=== PATIENT | female | born 1990 | race Caucasian/White ===

== ENCOUNTER 2019-04-10 16:08 | Observation (INO) | payer BC ==
[2019-04-10] MEDS ORDERED: ACETAMINOPHEN 325 MG TAB PO ONE (16:51)
[2019-04-10] MEDS ORDERED: 0.9 % SODIUM CHLORIDE 1,000 ML BAG IV ONE ×2 (16:52→18:17)
--- NOTE | 2019-04-10 16:55 | Emergency Department Record ---
History of Present Illness - General Chief Complaint: Fever Stated Complaint: FEVER,COUGH,SORE THROAT Time Seen by Provider: 04/10/19 16:45 Source: Patient Mode of Arrival: Ambulatory Limitations: No limitations - History of Present Illness Initial Comments: The patient is here due to a 3 day hx of cough, congestion, fever, and FUENTES. One of her children recently has had pneumonia. She denies any CP, SOB, neck pain or vomiting. MD Complaint: Fever, Malaise Onset/Timin -: Days(s) Maximum Temperature: 103.6 F Temperature Source: Oral Context: Sick contacts Associated Symptoms: Cough, Headache, Sore throat, Other Treatments Prior to Arrival: None - Related Data Home Medications Medication Instructions Recorded Confirmed Last Taken No Home Med [NO HOME MEDS] 04/10/19 04/10/19 Unknown Allergies Allergy/AdvReac Type Severity Reaction Status Date / Time morphine Allergy Mild HIVES Verified 04/10/19 16:20 Travel Screening - Travel/Exposure Within Last 30 Days Have you traveled within the last 30 days?: No Review of Systems Constitutional: Reports: Chills, Fever, Malaise Eyes: Denies: Eye discharge ENT: Denies: Congestion Respiratory: Reports: Cough. Denies: Dyspnea Cardiovascular: Denies: Arrhythmia Endocrine: Reports: Fatigue Past Medical History - SOCIAL HISTORY Smoking Status: Current every day smoker - RESPIRATORY Hx Respiratory Disorders: No - CARDIOVASCULAR Hx Cardio Disorders: No - NEURO Hx Neuro Disorders: Yes - GI Hx GI Disorders: No - Hx Genitourinary Disorders: No - ENDOCRINE Hx Endocrine Disorders: No - MUSCULOSKELETAL Hx Musculoskeletal Disorders: No Comment:: right knee pain for several weeks - PSYCH Hx Psych Problems: No - HEMATOLOGY/ONCOLOGY Hx Hematology/Oncology Disorders: No Family Medical History Any Significant Family History?: Yes Hx Alcohol Use: Father Hx Dementia: Grandparents Hx Resp Disorders: Brother/Sister Physical Exam - General General Appearance: Alert, Oriented x3, Cooperative, No acute distress - Head Head exam: Atraumatic, Normocephalic - Eye Eye exam: Normal appearance, PERRL, EOMI - ENT Throat exam: Tonsillar erythema. negative: Normal inspection, Tonsillomegaly - Neck Neck exam: Normal inspection, Full ROM. negative: Meningismus (the neck is very supple.), Tenderness - Respiratory Respiratory exam: Normal lung sounds bilaterally. negative: Chest wall tenderness, Rales, Respiratory distress - Cardiovascular Cardiovascular Exam: Regular rate, Normal rhythm, Normal heart sounds. negative: Diastolic murmur - GI/Abdominal GI/Abdominal exam: Soft, Normal bowel sounds. negative: Tenderness - Extremities Extremities exam: Normal inspection, Full ROM, Normal capillary refill. negative: Tenderness - Neurological Neurological exam: Alert. negative: Motor sensory deficit Course Vital Signs 04/10/19 16:16 Temperature 103.1 F H Pulse Rate 132 H Respiratory 22 Rate Blood Pressure 131/79 Pulse Ox 97 - Reevaluation(s) Reevaluation #1: The patient is doing better at this time. Her HR is improving and her temp is down to 102.0. I did discuss the xray that did demonstrate bilateral pneumonia and recommended a short stay hospital admission and the patient agreed with the plan. I then did discuss the case with Deya Lazo ([employer]GR[employer]) and she does accept the patient for admission. 04/10/19 18:15 Medical Decision Making - Data Complexity MDM Data: Labs Ordered and/or Reviewed, X-Ray Ordered and/or Reviewed - Lab Data Result diagrams: 04/10/19 17:10 04/10/19 17:10 - Radiology Data Radiology results: Report reviewed (CXR: R middle lobe infiltrate and possible L lingula infiltrate.) Disposition Disposition: Admit Clinical Impression: Pneumonia Qualifiers: Pneumonia type: due to unspecified organism Laterality: bilateral Lung location: unspecified part of lung Qualified Code(s): J18.9 - Pneumonia, unspecified organism Disposition: Still a Patient at [facility] Decision to Admit: Admit from ER Decision to Admit Date: 04/10/19 Decision to Admit Time: 18:18 Accepting Physician: Carmen Time Discussed w/Accepting Physician: 18:18 Condition: (2) Stable Instructions: Pneumonitis (ED) Forms: Patient Portal Access Time of Disposition: 18:18 Quality - Quality Measures Quality Measures: N/A - Blood Pressure Screening View Details: Yes Does Patient Have Any of the Following: No Blood Pressure Classification: Pre-Hypertensive BP Reading Systolic Measurement: 131 Diastolic Measurement: 79 Screening for High Blood Pressure: < Pre-Hypertensive BP, F/U Documented > [G8950] Pre-Hypertensive Follow-up Interventions: Referral to alternative/primary care provider.
[2019-04-10] MEDS ORDERED: IBUPROFEN 600 MG TABLET PO ONE (17:14)
[2019-04-10 17:28] LABS: HEMATOCRIT 44.6 % (35.0-47.0); HEMOGLOBIN 15.1 gm/dl (11.6-16.0); MEAN CELL VOLUME 88.3 fl (81-97); MEAN CORPUSCULAR HEMOGLOBIN 29.9 pg (27-33); MEAN CORPUSCULAR HGB CONC 33.9 g/dl (32-36); MEAN PLATELET VOLUME 10.2 fl (7.4-10.4); PLATELET COUNT 172 K/uL (130-400); RED BLOOD COUNT 5.05 M/uL (3.80-5.40); RED CELL DISTRIBUTION WIDTH 12.2 % (11.5-14.5); WHITE BLOOD COUNT W/O DIFF 9.8 K/uL (4.2-12.2)
[2019-04-10] MEDS ORDERED: CEFTRIAXONE 1GM/50ML BAG 1 GM/50 ML BAG IVPB ONE (17:35)
[2019-04-10] MEDS ORDERED: AZITHROMYCIN 500 MG in 0.9 % SODIUM CHLORIDE 250ML 250 ML IVPB ONE (17:36)
[2019-04-10 17:40] LABS: BLOOD UREA NITROGEN 9 mg/dL (6-20); EST GLOMERULAR FILTRATION RATE > 60 mL/min
[2019-04-10 17:41] LABS: TOTAL PROTEIN 7.5 g/dL (6.6-8.7)
[2019-04-10 17:43] LABS: GLUCOSE,RANDOM 105 mg/dL (74-109)
[2019-04-10 17:45] LABS: ALB/GLOB RATIO 1.5 (1.1-1.8); ALBUMIN 4.5 g/dL (4.0-5.0); ALKALINE PHOSPHATASE 74 U/L (35-104); ALT/SGPT 18 U/L (<33); AST/SGOT 19 U/L (10.0-35.0)
[2019-04-10 17:46] LABS: C-REACTIVE PROTEIN 16.21 mg/dL (<0.5)
[2019-04-10 18:02] LABS: ABSOLUTE NEUTROPHIL COUNT 8.56
[2019-04-10] MEDS: CEFTRIAXONE SODIUM 1 GM in 0.9 % SODIUM CHLORIDE 100ML 100 ML IVPB SCH (19:39)
[2019-04-10] MEDS: IPRATROPIUM/ALBUTEROL (0.5MG/3MG) NEB INH SCH (21:12)
[2019-04-11] MEDS: ACETAMINOPHEN 325 MG TAB PO PRN ×2 (04:12→20:01)
[2019-04-11] MEDS: IPRATROPIUM/ALBUTEROL (0.5MG/3MG) NEB INH SCH ×5 (06:01→22:01)
[2019-04-11 06:38] LABS: ABSOLUTE NEUTROPHIL COUNT 6.84; BASO % 0.1 % (0-6); EOS % 0.2 % (0-6); HEMATOCRIT 38.7 % (35.0-47.0); HEMOGLOBIN 12.8 gm/dl (11.6-16.0); LYMPH % 7.3 % (16-45); MEAN CELL VOLUME 89.2 fl (81-97); MEAN CORPUSCULAR HEMOGLOBIN 29.5 pg (27-33); MEAN CORPUSCULAR HGB CONC 33.1 g/dl (32-36); MEAN PLATELET VOLUME 10.1 fl (7.4-10.4); MONO % 7.1 % (0-9); PLATELET COUNT 136 K/uL (130-400); RED BLOOD COUNT 4.34 M/uL (3.80-5.40); RED CELL DISTRIBUTION WIDTH 12.2 % (11.5-14.5)
[2019-04-11] MEDS: CEFTRIAXONE SODIUM 1 GM in 0.9 % SODIUM CHLORIDE 100ML 100 ML IVPB SCH (06:38)
[2019-04-11 06:51] LABS: ALBUMIN 3.5 g/dL (4.0-5.0); BLOOD UREA NITROGEN 7 mg/dL (6-20); CREATININE 0.7 mg/dL (0.5-0.9); EST GLOMERULAR FILTRATION RATE > 60 mL/min; GLUCOSE,RANDOM 115 mg/dL (74-109); TOTAL PROTEIN 5.9 g/dL (6.6-8.7)
[2019-04-11 06:52] LABS: ALB/GLOB RATIO 1.5 (1.1-1.8); ALKALINE PHOSPHATASE 59 U/L (35-104); ALT/SGPT 17 U/L (<33); AST/SGOT 18 U/L (10.0-35.0)
--- NOTE | 2019-04-11 07:14 | RADIOLOGY REPORT ---
EXAM: CHEST, TWO VIEWS HISTORY: COUGH, DIFFICULTY IN BREATHING, FEVER. TECHNIQUE: PA and lateral views of the chest were obtained. Comparison: Two view chest 08/07/15. FINDINGS: The heart size is normal, however, there is considerable new infiltrate in the right middle lobe compared to the prior study, presumably representing pneumonitis. There is probably a small patch in the left base medially as well, likely within the lingula. Follow-up films are suggested to demonstrate clearing. No definite pleural effusion or pneumothorax evident. IMPRESSION: 1. NEW INFILTRATE IN THE RIGHT MIDDLE LOBE AND PROBABLY A SMALL AMOUNT IN THE LINGULA WELL COMPARED WITH 08/07/15 PRESUMABLY REPRESENTING ACUTE PNEUMONITIS CURRENTLY. 2. FOLLOW-UP FILMS SUGGESTED TO DEMONSTRATE CLEARING. JOB NUMBER: [id number] MTDD
[2019-04-11] MEDS: 0.9 % SODIUM CHLORIDE 1000ML 1,000 ML IV PRN (08:14)
[2019-04-11] MEDS: ALBUTEROL SULFATE (0.083%) 2.5 MG/3 ML NEB INH PRN ×2 (09:34→18:13)
[2019-04-11] MEDS: IBUPROFEN 600 MG TABLET PO PRN ×2 (09:43→17:43)
--- NOTE | 2019-04-11 15:32 | History & Physical ---
History of Present Illness - Date of Service Date of Service for History & Physical: 04/12/19 - History of Present Illness Admitting Diagnosis: 1. Acute Bilateral Pneumonia History of Present Illness: 28 yo female c/o cough, congestion, fever, and FUENTES for 3 days. Pt son had URI that turned into PNA and he was treated with quick recovery. 04/11/19 Temp 103.1, HR 132, BP 131/79, RR 22, 97% RA CBC 9.8, Hgb 15.1, Hct 44.6, Plt 172 Na 130, K 4.0, Anion gap 16, BUN 9, Cr 1.0, Glucose 105, LFTs unremarkable, CRP 16.21 CXR RLL PNA Pt given 1 L NS, Zithromax 500IVPB, Rocephin 1gm, Motrin 600mg, Tylenol 650mg Admission for PNA 04/11/19 Pt resting in bed, mild resp distress. Lungs are dim but no rhonchi noted, no accessory muscle use. Moving all extremities, skin is pale warm and dry. POC continue antibiotics, breathing treatments and repeat labs and CXR in the am. Monitor temp and treat as needed PCP none Travel Screening - Travel/Exposure Within Last 30 Days Have you traveled within the last 30 days?: Yes Location Detail:: [place] - Travel/Exposure Within Last Year Have you traveled outside the [place] in the last year?: No - Additonal Travel Details Have you been exposed to anyone with a communicable illness?: No - Travel Symptoms Symptom Screening: Fever (GT 100.4), Weakness, Fatigue Review of Systems Constitutional: Reports: Chills, Fever, Malaise Eyes: Denies: Eye discharge ENT: Denies: Congestion Respiratory: Reports: Cough. Denies: Dyspnea Cardiovascular: Denies: Arrhythmia Endocrine: Reports: Fatigue Past Medical History - SOCIAL HISTORY Smoking Status: Current every day smoker - RESPIRATORY Hx Respiratory Disorders: No - CARDIOVASCULAR Hx Cardio Disorders: No - NEURO Hx Neuro Disorders: Yes - GI Hx GI Disorders: No - Hx Genitourinary Disorders: No - ENDOCRINE Hx Endocrine Disorders: No - MUSCULOSKELETAL Hx Musculoskeletal Disorders: No Comment:: right knee pain for several weeks - PSYCH Hx Psych Problems: No - HEMATOLOGY/ONCOLOGY Hx Hematology/Oncology Disorders: No Family Medical History Any Significant Family History?: Yes Hx Alcohol Use: Father Hx Dementia: Grandparents Hx Resp Disorders: Brother/Sister H&P Meds/Allergies - Allergies Allergies: Allergies Allergy/AdvReac Type Severity Reaction Status Date / Time morphine Allergy Mild HIVES Verified 04/10/19 16:20 - Home Medications Home Medications Medication Instructions Recorded Confirmed Last Taken No Home Med [NO HOME MEDS] 04/10/19 04/10/19 Unknown - Active Medications Active Medications: Current Medications Acetaminophen (Tylenol 325mg) 650 mg PO Q4H PRN PRN Reason: PAIN - MILD(1-4)/FEVER Last Admin: 04/11/19 04:12 Dose: 650 mg Documented by: Albuterol Sulfate (Albuterol Sulfate) 2.5 mg INH Q2H PRN PRN Reason: SHORTNESS OF BREATH Last Admin: 04/11/19 09:34 Dose: 2.5 mg Documented by: Albuterol/Ipratropium (Duoneb) 3 ml INH RESP.Q4H.WA [facility] Last Admin: 04/11/19 13:09 Dose: 3 ml Documented by: Azithromycin (Zithromax) 500 mg PO Q24H [facility] Sodium Chloride () 1,000 mls @ 100 mls/hr IV .Q10H PRN PRN Reason: LARGE VOLUME IV Last Admin: 04/11/19 08:14 Dose: 100 mls/hr Documented by: CEFTRIAXONE 1GM/50ML BAG (Ceftriaxone 1 Gm-D5w Bag) 1 gm in 50 mls @ 100 mls/hr IVPB Q12H [facility] Ibuprofen (Motrin 600mg) 600 mg PO Q8H PRN PRN Reason: FEVER Last Admin: 04/11/19 09:43 Dose: 600 mg Documented by: Physical Exam - Vital Signs Vital Signs: Vital Signs - Last 24 Hrs Temp Pulse Pulse Pulse Resp BP BP 04/11/19 14:40 99.1 F 04/11/19 13:10 97 H 18 04/11/19 12:00 99.7 F H 114 H 18 92/59 04/11/19 09:41 16 04/11/19 09:36 99 H 18 04/11/19 08:52 98.9 F 04/11/19 07:31 99.1 F 106 H 19 107/56 04/11/19 06:02 78 16 04/11/19 05:15 101 F H 07/18/19 04:00 102.8 F H 121 H 18 105/62 04/11/19 00:00 103 H 18 96/63 04/10/19 21:27 86 16 04/10/19 21:00 18 04/10/19 20:00 98.5 F 96 H 18 98/62 04/10/19 19:05 22 04/10/19 18:40 97.9 F 94 H 20 94/60 04/10/19 18:39 100.9 F H 04/10/19 17:16 103.0 F H 04/10/19 17:15 118 H 21 111/73 04/10/19 16:16 103.1 F H 132 H 22 131/79 Pulse Ox 04/11/19 14:40 04/11/19 13:10 96 04/11/19 12:00 96 04/11/19 09:41 04/11/19 09:36 99 04/11/19 08:52 04/11/19 07:31 98 04/11/19 06:02 04/11/19 05:15 04/11/19 04:00 97 04/11/19 00:00 96 04/10/19 21:27 04/10/19 21:00 04/10/19 20:00 96 04/10/19 19:05 04/10/19 18:40 95 04/10/19 18:39 04/10/19 17:16 04/10/19 17:15 98 04/10/19 16:16 97 - General General Appearance: Alert, Oriented x3, Cooperative, No acute distress Limitations: No limitations - Head Head exam: Atraumatic, Normocephalic - Eye Eye exam: Normal appearance, PERRL, EOMI - ENT Throat exam: Tonsillar erythema. negative: Normal inspection, Tonsillomegaly - Neck Neck exam: Normal inspection, Full ROM. negative: Meningismus (the neck is very supple.), Tenderness - Respiratory Respiratory exam: Normal lung sounds bilaterally. negative: Chest wall tenderness, Rales, Respiratory distress - Cardiovascular Cardiovascular Exam: Regular rate, Normal rhythm, Normal heart sounds. negative: Diastolic murmur - GI/Abdominal GI/Abdominal exam: Soft, Normal bowel sounds. negative: Tenderness - Extremities Extremities exam: Normal inspection, Full ROM, Normal capillary refill. negative: Tenderness - Neurological Neurological exam: Alert. negative: Motor sensory deficit Results - Labs Result Diagrams: 04/12/19 09:45 04/12/19 09:45 Labs Last 24 Hours: Laboratory Results - last 24 hr 04/10/19 04/10/19 04/10/19 17:10 17:10 17:10 WBC 9.8 RBC 5.05 Hgb 15.1 Hct 44.6 MCV 88.3 MCH 29.9 MCHC 33.9 RDW 12.2 Plt Count 172 MPV 10.2 Neutrophils % 87.0 H Band Neutrophils % Lymphocytes % Monocytes % Eosinophils % Not Reportable Basophils % Not Reportable Absolute Neutrophils 8.56 Lymphocytes 6.0 L Monocytes 7.0 Basophils Eosinophil Count Sodium 130 L Potassium 4.0 Chloride 93 L Carbon Dioxide 21.0 L Anion Gap 16.0 BUN 9 Creatinine 1.0 H Estimated GFR > 60 Random Glucose 105 Calcium 9.1 Total Bilirubin 0.90 AST 19 ALT 18 Alkaline Phosphatase 74 C-Reactive Protein 16.21 H Total Protein 7.5 Albumin 4.5 Globulin 3.0 Albumin/Globulin Ratio 1.5 Serum HCG, Qual Negative 04/11/19 04/11/19 06:29 06:29 WBC 8.0 RBC 4.34 Hgb 12.8 Hct 38.7 MCV 89.2 MCH 29.5 MCHC 33.1 RDW 12.2 Plt Count 136 MPV 10.1 Neutrophils % 86.0 H Band Neutrophils % 0.0 Lymphocytes % 7.3 L Monocytes % 7.1 Eosinophils % 0.2 Basophils % 0.1 Absolute Neutrophils 6.84 Lymphocytes 8.0 L Monocytes 6.0 Basophils 0.0 Eosinophil Count 0.0 Sodium 134 L Potassium 3.7 Chloride 103 Carbon Dioxide 19.0 L Anion Gap 12.0 BUN 7 Creatinine 0.7 Estimated GFR > 60 Random Glucose 115 H Calcium 7.7 L Total Bilirubin 0.60 AST 18 ALT 17 Alkaline Phosphatase 59 C-Reactive Protein Total Protein 5.9 L Albumin 3.5 L Globulin 2.4 Albumin/Globulin Ratio 1.5 Serum HCG, Qual VTE H&P Assessment - Risk for VTE Risk for VTE: Yes Risk Level: Moderate Risk Assessment Date: 04/11/19 Risk Assessment Time: 15:32 VTE Orders Placed or Will Be Placed: Yes
[2019-04-11] MEDS: CEFTRIAXONE 1GM/50ML BAG 1 GM/50 ML BAG IVPB SCH (17:42)
[2019-04-11] MEDS: AZITHROMYCIN 500 MG TABLET PO SCH (17:43)
[2019-04-11] MEDS ORDERED: AZITHROMYCIN 500 MG in 0.9 % SODIUM CHLORIDE 250ML 250 ML IVPB SCH (18:30)
[2019-04-12] MEDS: IBUPROFEN 600 MG TABLET PO PRN ×2 (02:17→17:58)
[2019-04-12] MEDS: IPRATROPIUM/ALBUTEROL (0.5MG/3MG) NEB INH SCH ×5 (05:14→22:04)
[2019-04-12] MEDS: CEFTRIAXONE 1GM/50ML BAG 1 GM/50 ML BAG IVPB SCH (05:30)
[2019-04-12] MEDS: ACETAMINOPHEN 325 MG TAB PO PRN (05:30)
[2019-04-12] MEDS: 0.9 % SODIUM CHLORIDE 1000ML 1,000 ML IV PRN (05:38)
[2019-04-12 09:52] LABS: ABSOLUTE NEUTROPHIL COUNT 3.83; BASO % 0.2 % (0-6); EOS % 1.6 % (0-6); HEMATOCRIT 37.5 % (35.0-47.0); HEMOGLOBIN 12.4 gm/dl (11.6-16.0); LYMPH % 13.4 % (16-45); MEAN CELL VOLUME 89.7 fl (81-97); MEAN CORPUSCULAR HEMOGLOBIN 29.7 pg (27-33); MEAN CORPUSCULAR HGB CONC 33.1 g/dl (32-36); MONO % 5.8 % (0-9); PLATELET COUNT 135 K/uL (130-400); RED BLOOD COUNT 4.18 M/uL (3.80-5.40); RED CELL DISTRIBUTION WIDTH 12.5 % (11.5-14.5); WHITE BLOOD COUNT W/O DIFF 4.9 K/uL (4.2-12.2)
[2019-04-12 10:04] LABS: BLOOD UREA NITROGEN 5 mg/dL (6-20); CREATININE 0.6 mg/dL (0.5-0.9); EST GLOMERULAR FILTRATION RATE > 60 mL/min; GLUCOSE,RANDOM 139 mg/dL (74-109)
[2019-04-12] MEDS: ENOXAPARIN 40 MG/0.4 ML SYR SQ SCH (10:24)
[2019-04-12] MEDS: METRONIDAZOLE 250 MG TABLET PO SCH ×2 (10:25→18:00)
[2019-04-12 11:04] LABS: URINE APPEARANCE CLEAR; URINE BILIRUBIN NEGATIVE (NEGATIVE); URINE BLOOD SMALL (NEGATIVE); URINE COLOR YELLOW; URINE GLUCOSE (UA) NEGATIVE (NEGATIVE); URINE KETONE NEGATIVE (NEGATIVE); URINE LEUKOCYTE ESTERASE NEGATIVE (NEGATIVE); URINE NITRITE NEGATIVE (NEGATIVE); URINE PROTEIN NEGATIVE (NEGATIVE); URINE UROBILINOGEN 0.2 E.U./dL (0.20 - 1.00)
[2019-04-12 11:12] LABS: URINE EPITHELIAL CELLS 0 - 2 (FEW); URINE RBC 0 - 2 (NONE SEEN); URINE WBC NONE SEEN (0-2/hpf)
--- NOTE | 2019-04-12 11:53 | Physician Progress Note ---
Subjective - Date Date of Physician Progress Note: 04/13/19 - Subjective Subjective Comment: pt reports feeling better but through the night, appears to have broken a fever as she sweat through her bed linens. Additionally still has activity intolerance. Objective - Vital Signs Vital Signs: Vital Signs - Last 24 Hrs Temp Pulse Pulse Resp BP Pulse Ox 04/12/19 11:36 97.6 F 109 H 20 105/60 97 04/12/19 09:37 116 H 24 95 04/12/19 07:38 98.5 F 97 H 16 95/51 96 04/12/19 05:16 108 H 12 97 04/12/19 04:00 99.4 F 121 H 16 103/58 95 04/12/19 00:00 98.7 F 98 H 18 90/54 97 04/11/19 22:03 105 H 20 97 04/11/19 21:00 100.3 F H 122 H 20 108/53 96 04/11/19 18:09 123 H 28 H 99 04/11/19 18:00 101.3 F H 63 30 H 100/63 98 04/11/19 14:40 99.1 F 04/11/19 13:10 97 H 18 96 04/11/19 12:00 99.7 F H 114 H 18 92/59 96 - General General Appearance: Alert, Oriented x3, Cooperative, Mild distress Limitations: No limitations - Head Head exam: Atraumatic, Normocephalic - Eye Eye exam: Normal appearance, PERRL, EOMI - ENT ENT exam: Normal exam, Mucous membranes moist Ear exam: Normal external inspection Throat exam: Tonsillar erythema. negative: Normal inspection, Tonsillomegaly - Neck Neck exam: Normal inspection, Full ROM. negative: Meningismus (the neck is very supple.), Tenderness - Respiratory Respiratory exam: Decreased breath sounds, Wheezes. negative: Accessory muscle use, Chest wall tenderness, Rales, Respiratory distress - Cardiovascular Cardiovascular Exam: Regular rate, Normal rhythm, Normal heart sounds. ne gative: Diastolic murmur Peripheral Pulses: 3+: Radial (R), Radial (L), Dorsalis Pedis (R), Dorsalis Pedis (L) - GI/Abdominal GI/Abdominal exam: Soft, Normal bowel sounds. negative: Tenderness - Rectal Rectal exam: Deferred - exam: Deferred - Extremities Extremities exam: Normal inspection, Full ROM, Normal capillary refill. negative: Tenderness - Neurological Neurological exam: Alert. negative: Motor sensory deficit Assessment and Plan - Assessment and Plan (1) Pneumonia Current Visit: Yes Status: Acute Qualifiers: Pneumonia type: due to unspecified organism Laterality: bilateral Lung location: unspecified part of lung Qualified Code(s): J18.9 - Pneumonia, unspecified organism Base Code: J18.9 - PNEUMONIA, UNSPECIFIED ORGANISM Comment: 04/13/19 -added Zosyn and pt improved symptoms -labs improved and were WNL last 2 draws -d/c on Levaquin, Flaygl and Ventolin with tessalon perles for cough (Consulted pharmacy for abx PO changes) -return for worsening symptoms -f/u with new PCP 04/12/19 -CXR shows worsening PNA -adding flaygl for increased anaerobic coverage -re-eval in the AM -continue alb nebs (2) DVT prophylaxis Current Visit: Yes Status: Acute Base Code: Z29.9 - ENCOUNTER FOR TX OPHYLACTIC MEASURES, UNSPECIFIED Comment: 04/12/19 -Lovenox 40mgSQ daily (3) Full code status Current Visit: Yes Status: Acute Base Code: Z78.9 - OTHER SPECIFIED HEALTH STATUS Comment: 04/12/19 full code Results - Labs Result Diagrams: 04/12/19 09:45 04/12/19 09:45 Labs Last 24 Hours: Laboratory Results - last 24 hr 04/12/19 04/12/19 04/12/19 09:45 09:45 11:02 WBC 4.9 RBC 4.18 Hgb 12.4 Hct 37.5 MCV 89.7 MCH 29.7 MCHC 33.1 RDW 12.5 Plt Count 135 MPV 10.0 Gran % 79.0 Lymphocytes % 13.4 L Monocytes % 5.8 Eosinophils % 1.6 Basophils % 0.2 Absolute Neutrophils 3.83 Sodium 139 Potassium 3.8 Chloride 106 Carbon Dioxide 21.0 L Anion Gap 12.0 BUN 5 L Creatinine 0.6 Estimated GFR > 60 Random Glucose 139 H Calcium 8.0 L Urine Color Yellow Urine Appearance Clear Urine pH 6.0 Ur Specific [place] <= 1.005 Urine Protein Negative Urine Glucose (UA) Negative Urine Ketones Negative Urine Blood Small H Urine Nitrite Negative Urine Bilirubin Negative Urine Urobilinogen 0.2 Ur Leukocyte Esterase Negative Urine RBC 0 - 2 Urine WBC None seen Ur Epithelial Cells 0 - 2 DVT/PE Assessment - Risk for VTE Risk for VTE: No Risk Level: Moderate Risk Assessment Date: 04/11/19 Risk Assessment Time: 15:32 VTE Orders Placed or Will Be Placed: Yes - Active Medicaitons Current Medications: Current Medications Acetaminophen (Tylenol 325mg) 650 mg PO Q4H PRN PRN Reason: PAIN - MILD(1-4)/FEVER Last Admin: 04/12/19 05:30 Dose: 650 mg Documented by: Albuterol Sulfate (Albuterol Sulfate) 2.5 mg INH Q2H PRN PRN Reason: SHORTNESS OF BREATH Last Admin: 04/11/19 18:13 Dose: 2.5 mg Documented by: Albuterol/Ipratropium (Duoneb) 3 ml INH RESP.Q4H.WA [facility] Last Admin: 04/12/19 09:26 Dose: 3 ml Documented by: Azithromycin (Zithromax) 500 mg PO Q24H [facility] Last Admin: 04/11/19 17:43 Dose: 500 mg Documented by: Enoxaparin Sodium (Lovenox) 40 mg SQ DAILY [facility] Last Admin: 04/12/19 10:24 Dose: 40 mg Documented by: Sodium Chloride () 1,000 mls @ 100 mls/hr IV .Q10H PRN PRN Reason: LARGE VOLUME IV Last Admin: 04/12/19 05:38 Dose: 100 mls/hr Documented by: CEFTRIAXONE 1GM/50ML BAG (Ceftriaxone 1 Gm-D5w Bag) 1 gm in 50 mls @ 100 mls/hr IVPB Q12H [facility] Last Infusion: 04/12/19 06:38 Dose: Infused Documented by: Ibuprofen (Motrin 600mg) 600 mg PO Q8H PRN PRN Reason: FEVER Last Admin: 04/12/19 02:17 Dose: 600 mg Documented by: Metronidazole (Flagyl) 500 mg PO Q8H [facility] Last Admin: 04/12/19 10:25 Dose: 500 mg Documented by: AMI Plan - Labs Result Diagrams: 04/12/19 09:45 04/12/19 09:45
--- NOTE | 2019-04-12 12:12 | History & Physical ---
History of Present Illness - Date of Service Date of Service for History & Physical: 04/13/19 - History of Present Illness Admitting Diagnosis: 1. Acute Bilateral Pneumonia History of Present Illness: 28 yo female c/o cough, congestion, fever, and FUENTES for 3 days. Pt son had URI that turned into PNA and he was treated with quick recovery. 04/11/19 Temp 103.1, HR 132, BP 131/79, RR 22, 97% RA CBC 9.8, Hgb 15.1, Hct 44.6, Plt 172 Na 130, K 4.0, Anion gap 16, BUN 9, Cr 1.0, Glucose 105, LFTs unremarkable, CRP 16.21 CXR RLL PNA Pt given 1 L NS, Zithromax 500IVPB, Rocephin 1gm, Motrin 600mg, Tylenol 650mg Admission for PNA 04/11/19 Pt resting in bed, mild resp distress. Lungs are dim but no rhonchi noted, no accessory muscle use. Moving all extremities, skin is pale warm and dry. POC continue antibiotics, breathing treatments and repeat labs and CXR in the am. Monitor temp and treat as needed PCP none Travel Screening - Travel/Exposure Within Last 30 Days Have you traveled within the last 30 days?: Yes Location Detail:: [place] - Travel/Exposure Within Last Year Have you traveled outside the [place] in the last year?: No - Additonal Travel Details Have you been exposed to anyone with a communicable illness?: No - Travel Symptoms Symptom Screening: Fever (GT 100.4), Weakness, Fatigue Review of Systems Constitutional: Reports: Chills, Fever, Malaise Eyes: Denies: Eye discharge ENT: Denies: Congestion Respiratory: Reports: Cough. Denies: Dyspnea Cardiovascular: Denies: Arrhythmia Endocrine: Reports: Fatigue Past Medical History - SOCIAL HISTORY Smoking Status: Former smoker - RESPIRATORY Hx Respiratory Disorders: No - CARDIOVASCULAR Hx Cardio Disorders: No - NEURO Hx Neuro Disorders: Yes - GI Hx GI Disorders: No - Hx Genitourinary Disorders: No - ENDOCRINE Hx Endocrine Disorders: No - MUSCULOSKELETAL Hx Musculoskeletal Disorders: No Comment:: right knee pain for several weeks - PSYCH Hx Psych Problems: No - HEMATOLOGY/ONCOLOGY Hx Hematology/Oncology Disorders: No Family Medical History Any Significant Family History?: Yes Hx Alcohol Use: Father Hx Dementia: Grandparents Hx Resp Disorders: Brother/Sister H&P Meds/Allergies - Allergies Allergies: Allergies Allergy/AdvReac Type Severity Reaction Status Date / Time morphine Allergy Mild HIVES Verified 04/10/19 16:20 - Home Medications Previous Rx's Medication Instructions Recorded Acetaminophen [Tylenol 325Mg] 650 mg PO Q4H PRN tablet 04/13/19 Albuterol Sulfate [Ventolin Hfa] 1 - 2 puff IH .EVERY 4-6 HOURS PRN 04/13/19 #1 inhaler Ibuprofen [Motrin 600Mg] 600 mg PO Q8H PRN tablet 04/13/19 Levofloxacin [Levaquin Tab] 500 mg PO DAILY 10 Days #10 tab 04/13/19 Metronidazole [Flagyl] 500 mg PO Q8HR 10 Days #30 tablet 04/13/19 - Active Medications Active Medications: Current Medications Acetaminophen (Tylenol 325mg) 650 mg PO Q4H PRN PRN Reason: PAIN - MILD(1-4)/FEVER Last Admin: 04/12/19 05:30 Dose: 650 mg Documented by: Albuterol Sulfate (Albuterol Sulfate) 2.5 mg INH Q2H PRN PRN Reason: SHORTNESS OF BREATH Last Admin: 04/11/19 18:13 Dose: 2.5 mg Documented by: Albuterol/Ipratropium (Duoneb) 3 ml INH RESP.Q4H.[facility] Last Admin: 04/12/19 09:26 Dose: 3 ml Documented by: Azithromycin (Zithromax) 500 mg PO Q24H [facility] Last Admin: 04/11/19 17:43 Dose: 500 mg Documented by: Enoxaparin Sodium (Lovenox) 40 mg SQ DAILY [facility] Last Admin: 04/12/19 10:24 Dose: 40 mg Documented by: Sodium Chloride () 1,000 mls @ 100 mls/hr IV .Q10H PRN PRN Reason: LARGE VOLUME IV Last Admin: 04/12/19 05:38 Dose: 100 mls/hr Documented by: CEFTRIAXONE 1GM/50ML BAG (Ceftriaxone 1 Gm-D5w Bag) 1 gm in 50 mls @ 100 mls/hr IVPB Q12H [facility] Last Infusion: 04/12/19 06:38 Dose: Infused Documented by: Ibuprofen (Motrin 600mg) 600 mg PO Q8H PRN PRN Reason: FEVER Last Admin: 04/12/19 02:17 Dose: 600 mg Documented by: Metronidazole (Flagyl) 500 mg PO Q8H [facility] Last Admin: 04/12/19 10:25 Dose: 500 mg Documented by: Physical Exam - Vital Signs Vital Signs: Vital Signs - Last 24 Hrs Temp Pulse Pulse Resp BP Pulse Ox 04/12/19 11:36 97.6 F 109 H 20 105/60 97 04/12/19 09:37 116 H 24 95 04/12/19 07:38 98.5 F 97 H 16 95/51 96 04/12/19 05:16 108 H 12 97 04/12/19 04:00 99.4 F 121 H 16 103/58 95 04/12/19 00:00 98.7 F 98 H 18 90/54 97 04/11/19 22:03 105 H 20 97 04/11/19 21:00 100.3 F H 122 H 20 108/53 96 04/11/19 18:09 123 H 28 H 99 04/11/19 18:00 101.3 F H 63 30 H 100/63 98 04/11/19 14:40 99.1 F 04/11/19 13:10 97 H 18 96 - General General Appearance: Alert, Oriented x3, Cooperative, Mild distress Limitations: No limitations - Head Head exam: Atraumatic, Normocephalic - Eye Eye exam: Normal appearance, PERRL, EOMI - ENT ENT exam: Normal exam, Mucous membranes moist Ear exam: Normal external inspection Throat exam: Tonsillar erythema. negative: Normal inspection, Tonsillomegaly - Neck Neck exam: Normal inspection, Full ROM. negative: Meningismus (the neck is very supple.), Tenderness - Respiratory Respiratory exam: Decreased breath sounds, Wheezes. negative: Accessory muscle use, Chest wall tenderness, Rales, Respiratory distress - Cardiovascular Cardiovascular Exam: Regular rate, Normal rhythm, Normal heart sounds. negative: Diastolic murmur Peripheral Pulses: 3+: Radial (R), Radial (L), Dorsalis Pedis (R), Dorsalis Pedis (L) - GI/Abdominal GI/Abdominal exam: Soft, Normal bowel sounds. negative: Tenderness - Rectal Rectal exam: Deferred - exam: Deferred - Extremities Extremities exam: Normal inspection, Full ROM, Normal capillary refill. negative: Tenderness - Neurological Neurological exam: Alert. negative: Motor sensory deficit Results - Labs Result Diagrams: 04/12/19 09:45 04/12/19 09:45 Labs Last 24 Hours: Laboratory Results - last 24 hr 04/12/19 04/12/19 04/12/19 09:45 09:45 11:02 WBC 4.9 RBC 4.18 Hgb 12.4 Hct 37.5 MCV 89.7 MCH 29.7 MCHC 33.1 RDW 12.5 Plt Count 135 MPV 10.0 Gran % 79.0 Lymphocytes % 13.4 L Monocytes % 5.8 Eosinophils % 1.6 Basophils % 0.2 Absolute Neutrophils 3.83 Sodium 139 Potassium 3.8 Chloride 106 Carbon Dioxide 21.0 L Anion Gap 12.0 BUN 5 L Creatinine 0.6 Estimated GFR > 60 Random Glucose 139 H Calcium 8.0 L Urine Color Yellow Urine Appearance Clear Urine pH 6.0 Ur Specific Simpson <= 1.005 Urine Protein Negative Urine Glucose (UA) Negative Urine Ketones Negative Urine Blood Small H Urine Nitrite Negative Urine Bilirubin Negative Urine Urobilinogen 0.2 Ur Leukocyte Esterase Negative Urine RBC 0 - 2 Urine WBC None seen Ur Epithelial Cells 0 - 2 VTE H&P Assessment - Risk for VTE Risk for VTE: No Risk Level: Moderate Risk Assessment Date: 04/11/19 Risk Assessment Time: 15:32 VTE Orders Placed or Will Be Placed: Yes Plan - Detailed Diagnosis and Plan (1) Pneumonia Current Visit: Yes Status: Acute Qualifiers: Pneumonia type: due to unspecified organism Laterality: bilateral Lung location: unspecified part of lung Qualified Code(s): J18.9 - Pneumonia, unspecified organism Base Code: J18.9 - PNEUMONIA, UNSPECIFIED ORGANISM Comment: 04/12/19 -CXR shows worsening PNA -adding flaygl for increased anaerobic coverage -re-eval in the AM -continue alb nebs (2) DVT prophylaxis Current Visit: Yes Status: Acute Base Code: Z29.9 - ENCOUNTER FOR PROPHYLACTIC MEASURES, UNSPECIFIED Comment: 04/12/19 -Lovenox 40mgSQ daily (3) Full code status Current Visit: Yes Status: Acute Base Code: Z78.9 - OTHER SPECIFIED HEALTH STATUS Comment: 04/12/19 full code
[2019-04-12] MEDS ORDERED: PIPERACILLIN SODIUM/TAZOBACTAM 3.375 GM in 0.9 % SODIUM CHLORIDE 100ML 100 ML IVPB ONE (13:44)
[2019-04-12] MEDS: AZITHROMYCIN 500 MG TABLET PO SCH (17:59)
[2019-04-12] MEDS: SODIUM CHLORIDE IVPB SCH (22:16)
[2019-04-12] MEDS: PIPERACILLIN SODIUM IVPB SCH (22:16)
[2019-04-12] MEDS: TAZOBACTAM IVPB SCH (22:16)
[2019-04-13] MEDS: IBUPROFEN 600 MG TABLET PO PRN ×2 (01:39→09:39)
[2019-04-13] MEDS: METRONIDAZOLE 250 MG TABLET PO SCH ×2 (02:04→09:46)
[2019-04-13] MEDS: TAZOBACTAM IVPB SCH (06:10)
[2019-04-13] MEDS: SODIUM CHLORIDE IVPB SCH (06:10)
[2019-04-13] MEDS: PIPERACILLIN SODIUM IVPB SCH (06:10)
[2019-04-13] MEDS: IPRATROPIUM/ALBUTEROL (0.5MG/3MG) NEB INH SCH (06:29)
--- NOTE | 2019-04-13 09:27 | Discharge Summary ---
Providers Discharge Summary Date: 04/13/19 Date of admission: 04/10/19 18:30 Expected Date of Discharge: 04/13/19 Attending physician: JENNY CABELLO Primary care physician: Deya Lazo N.P. Physical Exam - Vital Signs Vital Signs: Vital Signs - Last 24 Hrs Temp Pulse Pulse Resp BP Pulse Ox 04/13/19 08:05 63 20 04/13/19 08:00 98.4 F 95 H 20 103/60 95 04/13/19 06:30 84 18 96 04/13/19 02:13 98.6 F 94 H 22 106/65 97 04/12/19 22:04 95 H 18 96 04/12/19 20:00 98.8 F 114 H 18 111/57 97 04/12/19 18:58 99.0 F 04/12/19 18:40 108 H 18 04/12/19 16:00 98.6 F 110 H 20 111/60 95 04/12/19 13:59 104 H 20 96 04/12/19 13:50 97.9 F 04/12/19 11:36 97.6 F 109 H 20 105/60 97 04/12/19 09:37 116 H 24 95 - General General Appearance: Alert, Oriented x3, Cooperative, No acute distress Limitations: No limitations - Head Head exam: Atraumatic, Normocephalic - Eye Eye exam: Normal appearance, PERRL, EOMI - ENT ENT exam: Normal exam, Mucous membranes moist Ear exam: Normal external inspection Throat exam: negative: Normal inspection, Tonsillomegaly - Neck Neck exam: Normal inspection, Full ROM. negative: Meningismus (the neck is very supple.), Tenderness - Respiratory Respiratory exam: Normal lung sounds bilaterally, Wheezes. negative: Accessory muscle use, Chest wall tenderness, Rales, Respiratory distress - Cardiovascular Cardiovascular Exam: Regular rate, Normal rhythm, Normal heart sounds. negative: Diastolic murmur Peripheral Pulses: 3+: Radial (R), Radial (L), Dorsalis Pedis (R), Dorsalis Pedis (L) - GI/Abdominal GI/Abdominal exam: Soft, Normal bowel sounds. negative: Tenderness - Rectal Rectal exam: Deferred - exam: Deferred - Extremities Extremities exam: Normal inspection, Full ROM, Normal capillary refill. negative: Tenderness - Neurological Neurological exam: Alert. negative: Motor sensory deficit Hospitalization - Hospitalization Admission Diagnosis: 1. Acute Bilateral Pneumonia - Problem List/Discharge Diagnosis (1) Pneumonia Current Visit: Yes Status: Acute Discharge Diagnosis: Pneumonia type: due to unspecified organism Laterality: bilateral Lung location: unspecified part of lung Qualified Code(s): J18.9 - Pneumonia, unspecified organism Base Code: J18.9 - PNEUMONIA, UNSPECIFIED ORGANISM Comment: 04/13/19 -added Zosyn and pt improved symptoms -labs improved and were WNL last 2 draws -d/c on Levaquin, Flaygl and Ventolin with tessalon perles for cough (Consulted pharmacy for abx PO changes) -return for worsening symptoms -f/u with new PCP 04/12/19 -CXR shows worsening PNA -adding flaygl for increased anaerobic coverage -re-eval in the AM -continue alb nebs (2) DVT prophylaxis Current Visit: Yes Status: Acute Base Code: Z29.9 - ENCOUNTER FOR PROPHYLACTIC MEASURES, UNSPECIFIED Comment: 04/12/19 -Lovenox 40mgSQ daily (3) Full code status Current Visit: Yes Status: Acute Base Code: Z78.9 - OTHER SPECIFIED HEALTH STATUS Comment: 04/12/19 full code - Hospitalization Course Disposition: Home, Self-Care Hospital Course: 28 yo female c/o cough, congestion, fever, and FUENTES for 3 days. Pt son had URI that turned into PNA and he was treated with quick recovery. 04/11/19 Temp 103.1, HR 132, BP 131/79, RR 22, 97% RA CBC 9.8, Hgb 15.1, Hct 44.6, Plt 172 Na 130, K 4.0, Anion gap 16, BUN 9, Cr 1.0, Glucose 105, LFTs unremarkable, CRP 16.21 CXR RLL PNA Pt given 1 L NS, Zithromax 500IVPB, Rocephin 1gm, Motrin 600mg, Tylenol 650mg Admission for PNA 04/11/19 Pt resting in bed, mild resp distress. Lungs are dim but no rhonchi noted, no accessory muscle use. Moving all extremities, skin is pale warm and dry. POC continue antibiotics, breathing treatments and repeat labs and CXR in the am. Monitor temp and treat as needed PCP none Procedures: Imaging and X-Rays 04/10/19 16:51 CHEST 2 VIEWS [RAD] Stat 04/12/19 08:12 CHEST 2 VIEWS [RAD] Stat Abnormal Labs: Abnormal Lab Results 04/10/19 04/10/19 04/11/19 Range/Units 17:10 17:10 06:29 Neutrophils % 87.0 H 86.0 H (47-80) % Lymphocytes % 7.3 L (16-45) % Lymphocytes 6.0 L 8.0 L (16-45) % Sodium 130 L (136-145) mmol/L Chloride 93 L (98-107) mmol/L Carbon Dioxide 21.0 L (22-29) mmol/L BUN (6-20) mg/dL Creatinine 1.0 H (0.5-0.9) mg/dL Random Glucose (74-109) mg/dL Calcium (8.6-10.0) mg/dL C-Reactive Protein 16.21 H (<0.5) mg/dL Total Protein (6.6-8.7) g/dL Albumin (4.0-5.0) g/dL Urine Blood (NEGATIVE) 04/11/19 04/12/19 04/12/19 Range/Units 06:29 09:45 09:45 Neutrophils % (47-80) % Lymphocytes % 13.4 L (16-45) % Lymphocytes (16-45) % Sodium 134 L (136-145) mmol/L Chloride (98-107) mmol/L Carbon Dioxide 19.0 L 21.0 L (22-29) mmol/L BUN 5 L (6-20) mg/dL Creatinine (0.5-0.9) mg/dL Random Glucose 115 H 139 H (74-109) mg/dL Calcium 7.7 L 8.0 L (8.6-10.0) mg/dL C-Reactive Protein (<0.5) mg/dL Total Protein 5.9 L (6.6-8.7) g/dL Albumin 3.5 L (4.0-5.0) g/dL Urine Blood (NEGATIVE) 04/12/19 Range/Units 11:02 Neutrophils % (47-80) % Lymphocytes % (16-45) % Lymphocytes (16-45) % Sodium (136-145) mmol/L Chloride (98-107) mmol/L Carbon Dioxide (22-29) mmol/L BUN (6-20) mg/dL Creatinine (0.5-0.9) mg/dL Random Glucose (74-109) mg/dL Calcium (8.6-10.0) mg/dL C-Reactive Protein (<0.5) mg/dL Total Protein (6.6-8.7) g/dL Albumin (4.0-5.0) g/dL Urine Blood Small H (NEGATIVE) Condition at Discharge: (2) Stable Discharge Medications - Discharge Medications Prescriptions: Metronidazole [Flagyl] 500 mg PO Q8HR 10 Days #30 tablet Levofloxacin [Levaquin Tab] 500 mg PO DAILY 10 Days #10 tab Albuterol Sulfate [Ventolin Hfa] 1 - 2 puff IH .EVERY 4-6 HOURS PRN #1 inhaler PRN Reason: Difficulty In Breathing Home Medications: Ambulatory Orders Acetaminophen [Tylenol 325Mg] 650 mg PO Q4H PRN tablet 04/13/19 [Last Taken Unknown] Albuterol Sulfate [Ventolin Hfa] 1 - 2 puff IH .EVERY 4-6 HOURS PRN #1 inhaler 04/13/19 [Last Taken Unknown] Ibuprofen [Motrin 600Mg] 600 mg PO Q8H PRN tablet 04/13/19 [Last Taken Unknown] Levofloxacin [Levaquin Tab] 500 mg PO DAILY 10 Days #10 tab 04/13/19 [Last Taken Unknown] Metronidazole [Flagyl] 500 mg PO Q8HR 10 Days #30 tablet 04/13/19 [Last Taken Unknown] Discharge Plan - Discharge Instructions Activity at Discharge: Increase Activity as Tolerated Diet at Discharge: Regular Diet Instructions: Pneumonitis (ED), Community Acquired Pneumonia (DC) Additional Instructions: New patient appointment with Deya Lazo NP at the [facility] April 22 at 2:20pm. Please complete new patient paperwork and take with you to appointment. [facility] Address: [address] [place] [address] . Go back to ER for any return of fevers, shortness of breath, more productive cough of yellow or green sputum. Quality Measures - Quality Measures Quality Measures: Documentation of Current Medications in Medical Record, Screening for High Blood Pressure and F/U Documented - Current Medications Quality Measure: Measure #130: Documentation of Current Medications Documentation of Current Medications: <Current Medications Documented/Reviewed> [G8427] - Blood Pressure Screening Quality Measure: Screening for High Blood Pressure and Follow-Up Documented Does Patient Have Any of the Following: No Blood Pressure Classification: Pre-Hypertensive BP Reading Systolic Measurement: 131 Diastolic Measurement: 79 Screening for High Blood Pressure: < Pre-Hypertensive BP, F/U Documented > [G8950] Pre-Hypertensive Follow-up Interventions: Referral to alternative/primary care provider. - Elder Abuse Suspicion Index EASI Reference Information: Ana PURI, Jannet C, Alexandro Solomon, Suzanne Anderson.Development and validation of a tool to assist physicians identification of elder abuse: The Elder Abuse Suspicion Index (EASI ). Journal of Elder Abuse and Neglect, 2008; 20 (3): 276-300.
[2019-04-13] MEDS: ENOXAPARIN 40 MG/0.4 ML SYR SQ SCH (09:45)
[2019-04-13] MEDS ORDERED: FLUCONAZOLE 100 MG TABLET PO ONE (09:49)
[2019-04-13] MEDS: ALBUTEROL SULFATE (0.083%) 2.5 MG/3 ML NEB INH PRN (10:48)
[2019-04-13] MEDS ORDERED: ALBUTEROL HFA 8 GM INHALER INH SCH (14:00)
--- NOTE | 2019-04-13 22:24 | RADIOLOGY REPORT ---
EXAM: CHEST 2 VIEWS HISTORY: FOLLOW-UP PNEUMONIA. TECHNIQUE: Upright PA and lateral views of the chest. COMPARISON: Two-view chest radiographic examination dated 04/10/2019 at 1700. FINDINGS: The heart is not enlarged. No pulmonary venous hypertension is seen. Confluent airspace disease persists in the right middle lobe and there is likely new airspace disease in the right lower lobe. Minor patchy opacity also is now noted in the left lung base consistent with atelectasis or infiltrate. The right costophrenic angle is slightly blunted with a tiny effusion possible. No pneumothorax. Metallic piercing jewelry is noted at the level of each nipple. No acute osseous abnormality. IMPRESSION: CONSOLIDATIVE CHANGES OF THE RIGHT MIDDLE LOBE REDEMONSTRATED AND THERE IS NEW MILD AIRSPACE DISEASE IN THE RIGHT LUNG BASE CONSISTENT WITH PNEUMONIA. OVERALL, THIS APPEARS SLIGHTLY MORE PRONOUNCED. NEW PATCHY AIRSPACE DISEASE IN THE LEFT LUNG BASE ALSO IDENTIFIED CONSISTENT WITH INFILTRATE OR ATELECTASIS. JOB NUMBER: [id number] MTDD
== END 2019-04-13 10:45 | disposition home or self-care (01) ==
LOC: ER 16:08 → MEDSURG 18:30
PROVIDERS: ADMIT Internal Medicine; ATTEND Internal Medicine
DX: J15.9 Unspecified bacterial pneumonia (principal); R05 Cough; R51 Headache; J02.9 Acute pharyngitis, unspecified; F17.210 Nicotine dependence, cigarettes, uncomplicated
CPT/HCPCS: 71046; 80048; 80053; 81001; 84703; 85025; 85027; 86140; 87070; 94010; 94640; 94664; 96365; 96366; 96368; 99220; 99226; 99285; J0456; J0696; J1650; J2543; J7030; J7050; J7613